=== PATIENT | male | born 1970 | race Caucasian/White ===

== ENCOUNTER 2018-06-11 13:51 | Emergency (ER) | payer OTHER ==
[~2018-06-11] VITALS: Ht 170.2 cm; Wt 80.7 kg
[2018-06-11 15:00] VITALS: BP 167/110
[2018-06-11] MEDS ORDERED: NORCO 5-325 TA1 EACH PO (15:04)
[2018-06-11] MEDS ORDERED: CARISOPRODOL 3350 MG PO (15:04)
== END 2018-06-11 15:00 | disposition home or self-care (01) ==
LOC: ER 13:51
DX: S16.1XXA Strain of muscle, fascia and tendon at neck level, initial encounter (principal); S20.219A Contusion of unspecified front wall of thorax, initial encounter; Z90.89 Acquired absence of other organs; V89.2XXA Person injured in unspecified motor-vehicle accident, traffic, initial encounter; Y93.89 Activity, other specified; Y92.89 Other specified places as the place of occurrence of the external cause; Y99.8 Other external cause status